=== PATIENT | female | born 1985 | race African-American/Black ===

== ENCOUNTER 2016-12-25 01:19 | Emergency (ER) | payer OTHER ==
[~2016-12-25] VITALS: Ht 152.4 cm; Wt 63.6 kg
[~2016-12-25 01:19] MED LIST: HYDROCODON-ACE1 EAC1; MOTRIN600 MG PO; NAPROXEN500 MG PO; NOHOMEMEDS; TRAMADOL HCL50 MG PO; ZOFRAN ODT4 MG PO
[2016-12-25 04:47] LABS: CHLORIDE 103 mEq/L (99-109); POTASSIUM 4.3 mEq/L (3.7-5.4); SODIUM 138 mEq/L (136-147)
[2016-12-25 04:48] LABS: GLUCOSE 101 mg/dL (70-99)
[2016-12-25 04:50] LABS: ANION GAP 11 MEQ/L (2-14)
[2016-12-25 04:52] LABS: GFR ESTIMATE (CALCULATED) > 59 mL/min/
[2016-12-25 04:53] LABS: UREA NITROGEN (BUN) 13 mg/dL (9-23)
[2016-12-25 04:54] LABS: HEMATOCRIT 40.8 % (36.0-46.0); MCH 28.6 PG (29.0-34.0); MCHC 31.9 G/DL (30.0-36.0); MCV 89.7 FL (83-99); MEAN PLAT.VOLUME 9.8 uM^3 (9.5-12.4); PLATELET COUNT 354 K/uL (156-360); RBC DIS.WIDTH-CV 13.1 % (11.8-14.6); RBC DIS.WIDTH-SD 43.1 % (39-53); RED BLOOD COUNT 4.55 M/uL (3.80-5.20); WHITE BLOOD COUNT 10.1 K/uL (4.1-10.2)
[2016-12-25 06:13] VITALS: BP 116/78
== END 2016-12-25 06:28 | disposition designated cancer center or children's hospital, planned readmission (85) ==
LOC: EME 01:19
PROVIDERS: Emergency Medicine
PROC: 3E0234Z Introduction of Serum, Toxoid and Vaccine into Muscle, Percutaneous Approach (ICD-10-PCS; principal; 2016-12-25)
DX: T25.222A Burn of second degree of left foot, initial encounter (principal); T25.221A Burn of second degree of right foot, initial encounter; T31.0 Burns involving less than 10% of body surface; X12.XXXA Contact with other hot fluids, initial encounter; Z23 Encounter for immunization
CPT/HCPCS: 80048; 85027; 99281; 99285; J0690; J3010; J7030; J7050

== ENCOUNTER 2016-12-31 09:10 | Emergency (ER) | payer OTHER ==
[~2016-12-31] VITALS: Ht 152.4 cm; Wt 65.0 kg
[2016-12-31] MEDS ORDERED: OXYCODONE HCL5 MG PO (09:32)
[2016-12-31] MEDS ORDERED: OXAYDO5 MG PO (09:33)
[2016-12-31 09:49] VITALS: BP 148/99
== END 2016-12-31 10:03 | disposition home or self-care (01) ==
LOC: EXP 09:10 → EME 09:10 → EXP 10:03
DX: T25.221D Burn of second degree of right foot, subsequent encounter (principal); M79.671 Pain in right foot; F17.200 Nicotine dependence, unspecified, uncomplicated
CPT/HCPCS: 99281; 99284

== ENCOUNTER 2017-01-03 11:22 | Emergency (ER) | payer OTHER ==
[~2017-01-03] VITALS: Ht 152.4 cm; Wt 60.3 kg
[~2017-01-03 11:22] MED LIST changes: +OXAYDO5 MG PO; +OXYCODONE HCL5 MG PO
[2017-01-03] MEDS ORDERED: NAPROSYN500 MG PO (12:55)
[2017-01-03] MEDS ORDERED: LORTAB 5-325 M1 EACH PO (12:55)
[2017-01-03 13:42] VITALS: BP 132/91
== END 2017-01-03 13:43 | disposition home or self-care (01) ==
LOC: EME 11:22
DX: T25.221D Burn of second degree of right foot, subsequent encounter (principal); X10.2XXD Contact with fats and cooking oils, subsequent encounter; Z48.00 Encounter for change or removal of nonsurgical wound dressing; R26.89 Other abnormalities of gait and mobility; F17.200 Nicotine dependence, unspecified, uncomplicated
CPT/HCPCS: 99281; 99284; J1885